=== PATIENT | male | born 1950 | race Caucasian/White ===

== ENCOUNTER 2018-01-02 12:55 | Inpatient (IN) | payer OTHER ==
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
[2018-01-02] MEDS ORDERED: NS 1,000 ML IV ONE (13:01)
--- NOTE | 2018-01-02 13:17 | CPEKG ---
Heart Rate: 83 RR Interval: 723 P-R Interval: 168 QRSD Interval: 90 QT Interval: 412 QTC Interval: 485 P [place]: 72 QRS [place]: 6 T Wave [place]: 48 EKG Severity - BORDERLINE ECG - EKG Impression: SINUS RHYTHM EKG Impression: ATRIAL PREMATURE COMPLEX EKG Impression: BORDERLINE PROLONGED QT INTERVAL Electronically Signed By: Pravin Gasca 02-Jan-2018 18:09:34
[2018-01-02] MEDS ORDERED: TDAP ADULT 0.5 ML INJ (BOOSTRIX) IM ONE (13:21)
[2018-01-02] MEDS ORDERED: LET GEL TOPICAL 1 EA SYR TP ONE (13:22)
[2018-01-02 13:29] LABS: PLATELET COUNT 206 10^3/uL (150-400)
[2018-01-02] MEDS ORDERED: IOPAMIDOL (ISOVUE-300) 100 ML BTL ONE (13:58)
[2018-01-02 14:26] LABS: INR 1.05 (0.83-1.16); PROTIME(PATIENT) 13.9 SEC (12.0-15.0)
[2018-01-02] MEDS ORDERED: HYDROmorphONE/DILAUDID 2 MG/ML INJ IVP ONE (14:32)
[2018-01-02] MEDS ORDERED: KETOROLAC 30 MG/1 ML SDV IVP ONE ×2 (15:51→16:13)
[2018-01-02] MEDS ORDERED: ACETAMINOPHEN 500 MG TAB PO ONE ×2 (15:54→16:13)
[2018-01-02] MEDS ORDERED: CYCLOBENZAPRINE 10 MG TAB PO ONE (16:15)
[2018-01-02] MEDS ORDERED: LIDOCAINE 4%/MENTHOL 1% PATCH TD ONE (16:15)
[2018-01-02] MEDS ORDERED: ONDANSETRON 4 MG/2 ML VIAL IVP PRN (17:33)
[2018-01-02] MEDS ORDERED: TAMSULOSIN HCL 0.4 MG CAP PO PRN (17:39)
[2018-01-02] MEDS ORDERED: FAMOTIDINE 20 MG TAB PO PRN (17:39)
[2018-01-02] MEDS ORDERED: HYDROmorphONE/DILAUDID 6 MG/30 ML PCA IV PRN (17:43)
[2018-01-02] MEDS ORDERED: NALOXONE HCL 0.4 MG/ML INJ IVP PRN (17:43)
[2018-01-02] MEDS ORDERED: HYDROmorphONE/DILAUDID 1 MG/ML INJ IVP ONE ×2 (17:43→20:15)
[2018-01-02] MEDS ORDERED: KETOROLAC 30 MG/1 ML SDV IVP SCH (18:00)
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
[2018-01-02] MEDS ORDERED: PATCH REMOVAL 1 EA PATCH TD SCH ×2 (21:00)
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
[2018-01-02] MEDS: ACETAMINOPHEN 500 MG TAB PO SCH (21:33)
[2018-01-02] MEDS: CYCLOBENZAPRINE 10 MG TAB PO SCH (21:33)
[2018-01-02] MEDS: KETOROLAC 30 MG/1 ML SDV IVP SCH (21:34)
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
[2018-01-02] MEDS: LR 1,000 ML IV SCH (22:52)
[2018-01-03] MEDS: KETOROLAC 30 MG/1 ML SDV IVP SCH ×4 (05:14→22:44)
[2018-01-03] MEDS: ACETAMINOPHEN 500 MG TAB PO SCH ×2 (05:15→18:32)
[2018-01-03 05:36] LABS: PLATELET COUNT 177 10^3/uL (150-400)
[2018-01-03] MEDS ORDERED: LIDOCAINE 4%/MENTHOL 1% PATCH TD SCH (09:00)
[2018-01-03] MEDS ORDERED: CYCLOBENZAPRINE 10 MG TAB PO SCH (09:00)
[2018-01-03] MEDS: CYCLOBENZAPRINE 10 MG TAB PO SCH ×3 (09:29→20:19)
[2018-01-03] MEDS: SERTRALINE HCL 100 MG TAB PO SCH (09:30)
[2018-01-03] MEDS: LR 1,000 ML IV SCH (09:32)
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
[2018-01-03] MEDS ORDERED: ceFAZolin 2 GM/DEXTROSE 100 ML IV ONE (10:47)
[2018-01-03] MEDS ORDERED: LR 1,000 ML IV ONE (12:01)
--- NOTE | 2018-01-03 12:37 | PDANEPAE ---
ANE History of Present Illness patient presents for L clavicle ORIF and chest tube placement ANE Past Medical History - Pulmonary History Hx Oxygen in Use at Home: No Hx Sleep Apnea: No Sleep Apnea Screening Result - Last Documented: Negative - Endocrine History Hx Diabetes: No - Chronic Pain History Chronic Pain: Yes (back, left shoulder) ANE Review of Systems Review of Systems: ANE Patient History - Allergies Allergies/Adverse Reactions: No Known Allergies Allergy (Unverified 01/02/18 13:10) - Home Medications Home medications: home medication list seen and reviewed Home Medications: Calcium Carbonate [Tums 500MG (*)] 500 - 1,000 mg PO PRN PRN 01/02/18 [Last Taken Unknown] Cyclobenzaprine [Flexeril 10 MG (*)] 10 mg PO HS PRN 01/02/18 [Last Taken ] Diclofenac Sodium [Voltaren-XR] 100 mg PO DAILY 01/02/18 [Last Taken 01/02/18] Famotidine [Pepcid 20 MG (*)] 20 mg PO DAILY PRN 01/02/18 [Last Taken Unknown] Sertraline HCl [Zoloft 100mg (*)] 100 mg PO DAILY 01/02/18 [Last Taken 01/02/18] Tamsulosin HCl [Flomax 0.4 MG (*)] 0.4 mg PO DAILY PRN 01/02/18 [Last Taken 03/07] - NPO status NPO Status: no food or drink >8 hours NPO Since - Liquids (Date): 01/02/18 NPO Since - Liquids (Time): 23:55 NPO Since - Solids (Date): 01/02/18 NPO Since - Solids (Time): 23:55 - Smoking Hx Smoking Status: Former smoker ANE Labs/Vital Signs - Labs Result Diagrams: 01/03/18 04:54 01/03/18 04:54 - Vital Signs Blood Pressure: 113/72 Heart Rate: 68 Respiratory Rate: 92 O2 Sat (%): 2 Height: 180.34 cm Weight: 89.811 kg ANE Physical Exam - Airway Neck exam: FROM Mallampati Score: Class 2 Mouth exam: normal dental/mouth exam - Pulmonary Pulmonary: no respiratory distress - Cardiovascular Cardiovascular: regular rate and rhythym - ASA Status ASA Status: II ANE Anesthesia Plan Anesthesia Plan: general endotracheal anesthesia (RBA discussed)
[2018-01-03] MEDS ORDERED: BUPIVACAINE/EPI 0.5% 30 ML SDV ONE (12:40)
[2018-01-03] MEDS ORDERED: LIDOCAINE 1% 300 MG/30 ML SDV ONE (12:42)
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
[2018-01-03] MEDS ORDERED: LIDOCAINE 2% 5 ML SDV ONE (12:55)
[2018-01-03] MEDS ORDERED: PROPOFOL 200 MG/20 ML VIAL ONE (12:55)
[2018-01-03] MEDS ORDERED: SUCCINYLCHOLINE CHLORIDE 200 MG/10 ML SYR IVP ONE (12:55)
[2018-01-03] MEDS ORDERED: fentaNYL 100 MCG/2 ML INJ ONE ×3 (12:55→16:09)
[2018-01-03] MEDS ORDERED: PHENYLEPHRINE HCL 100 MCG/ML SYR ONE (13:24)
[2018-01-03] MEDS ORDERED: DEXAMETHASONE 4 MG/ML VIAL ONE (13:28)
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
[2018-01-03] MEDS ORDERED: THROMBIN (BOVINE) 5,000 UNIT VIAL TP ONE (14:59)
[2018-01-03] MEDS ORDERED: HYDROCODONE/APAP 5/325 TAB PO PRN (15:06)
[2018-01-03] MEDS ORDERED: LR 500 ML IV PRN (15:06)
[2018-01-03] MEDS ORDERED: NALOXONE HCL 0.4 MG/ML INJ IVP PRN (15:06)
[2018-01-03] MEDS ORDERED: ONDANSETRON 4 MG/2 ML VIAL IVP PRN (15:06)
[2018-01-03] MEDS ORDERED: NEOSTIGMINE METHYLSULFATE 5 MG/5 ML SYR ONE (15:12)
--- NOTE | 2018-01-03 15:31 | POSTOPPROG ---
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
--- NOTE | 2018-01-03 15:36 | POSTANESTH ---
Post Anesthetic Evaluation Cardiovascular Status: Similar to Pre-Op Cond, Other, See Comment Respiratory Status: Similar to Pre-op Cond. Level of Consciousness/Mental Status: Mildly Sleepy, Arousable Pain Control: Adequate, Prn Tx Ordered Nausea/Vomiting Control: Adequate, Prn Tx Ordered Complications Possibly Related to Anesthesia: None Noted
--- NOTE | 2018-01-03 15:55 | CPEKG ---
Heart Rate: 73 RR Interval: 822 P-R Interval: 168 QRSD Interval: 82 QT Interval: 428 QTC Interval: 472 P [place]: 57 QRS [place]: 11 T Wave [place]: 49 EKG Severity - ABNORMAL ECG - EKG Impression: SINUS RHYTHM EKG Impression: MULTIPLE ATRIAL PREMATURE COMPLEXES Electronically Signed By: Stephan Man 04-Jan-2018 12:02:01
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
[2018-01-03] MEDS: fentaNYL 100 MCG/2 ML INJ IVP PRN ×2 (16:11→17:54)
[2018-01-03] MEDS ORDERED: LIDOCAINE 4%/MENTHOL 1% PATCH TD ONE (16:15)
[2018-01-03] MEDS ORDERED: HYDROCODONE/APAP 5/325 TAB ONE (17:16)
--- NOTE | 2018-01-03 18:50 | POSTOPPROG ---
Post Op Note Date of Operation: 01/03/18 Surgeon: Saroj Garrison Anesthesiologist: DOE Anesthesia: GET(General Endotracheal) Pre-op Diagnosis: MULTIPLE LEFT RIB FRACTURES AND PNEUMOTHORAX Post-op Diagnosis: SAME Indication: ENDOTRACHEAL INTUBATION Procedure: LEFT TUBE THORACOSTOMY Findings: FULL EXPANSION THE LEFT LUNG NO HEMOTHORAX Inf/Abcess present in the surg proc area at time of surgery?: No Depth: Organ Space EBL: Minimal Complications: NONE Drains: Constavac
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
[2018-01-03] MEDS: OXYCODONE/APAP 5/325 TAB PO PRN ×2 (20:19→20:58)
[2018-01-03] MEDS: HYDROmorphONE/DILAUDID 1 MG/ML INJ IVP PRN ×2 (20:59→23:18)
[2018-01-04] MEDS: OXYCODONE/APAP 5/325 TAB PO PRN ×2 (03:43→11:14)
[2018-01-04] MEDS: KETOROLAC 30 MG/1 ML SDV IVP SCH ×2 (03:45→10:35)
[2018-01-04 04:21] LABS: PLATELET COUNT 170 10^3/uL (150-400)
[2018-01-04] MEDS: HYDROmorphONE/DILAUDID 1 MG/ML INJ IVP PRN ×5 (08:19→21:58)
[2018-01-04] MEDS: CYCLOBENZAPRINE 10 MG TAB PO SCH ×3 (08:20→21:59)
[2018-01-04] MEDS: SERTRALINE HCL 100 MG TAB PO SCH (08:20)
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
[2018-01-04] MEDS ORDERED: ACETAMINOPHEN 500 MG TAB PO PRN (15:38)
[2018-01-04] MEDS ORDERED: LACTULOSE 20 GM/30 ML UDCUP PO PRN (15:51)
[2018-01-04] MEDS ORDERED: POLYETHYLENE GLYCOL 3350 17 GM PKT PO PRN (15:51)
[2018-01-04] MEDS ORDERED: BISACODYL 10 MG SUPP PR PRN (15:51)
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
[2018-01-04] MEDS: LIDOCAINE 4%/MENTHOL 1% PATCH TD SCH (15:57)
[2018-01-04] MEDS: IBUPROFEN 200 MG TAB PO PRN (15:58)
[2018-01-04] MEDS: oxyCODONE IR 15 MG TAB PO PRN ×2 (15:58→21:59)
[2018-01-04] MEDS: ENOXAPARIN 40 MG/0.4 ML SYR SC SCH (16:03)
[2018-01-04] MEDS: SENNOSIDES/DOCUSATE SODIUM TAB PO SCH (21:59)
[2018-01-05] MEDS: PATCH REMOVAL 1 EA PATCH TD SCH (00:52)
[2018-01-05] MEDS: HYDROmorphONE/DILAUDID 1 MG/ML INJ IVP PRN ×3 (04:05→20:21)
[2018-01-05] MEDS: oxyCODONE IR 15 MG TAB PO PRN ×5 (04:07→20:21)
[2018-01-05] MEDS: LIDOCAINE 4%/MENTHOL 1% PATCH TD SCH (08:06)
[2018-01-05] MEDS: ENOXAPARIN 40 MG/0.4 ML SYR SC SCH (08:07)
[2018-01-05] MEDS: SENNOSIDES/DOCUSATE SODIUM TAB PO SCH ×2 (08:08→20:20)
[2018-01-05] MEDS: CYCLOBENZAPRINE 10 MG TAB PO SCH ×3 (08:08→20:21)
[2018-01-05] MEDS: SERTRALINE HCL 100 MG TAB PO SCH (08:08)
[2018-01-05] MEDS: IBUPROFEN 200 MG TAB PO PRN (09:14)
--- NOTE | 2018-01-05 09:42 | ASMTCMCOM ---
CM Note CM Note Notes: Therapies have cleared pt to d/c home with family support. No other needs identified at this time. CM available for changes. Plan: Independent Date Signed: 01/05/2018 09:41 AM Electronically Signed By:HODAN Carbone
--- NOTE | 2018-01-05 13:06 | CPEKG ---
Heart Rate: 122 RR Interval: 492 QRSD Interval: 84 QT Interval: 324 QTC Interval: 462 QRS [place]: 22 T Wave [place]: 40 EKG Severity - ABNORMAL ECG - EKG Impression: ATRIAL FIBRILLATION, V-RATE 74-161 Electronically Signed By: Stephan Man 05-Jan-2018 19:38:11
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
--- NOTE | 2018-01-05 13:42 | ASMTCMCOM ---
CM Note CM Note Notes: CM met w/ pts daughter per her request. Daughter is concerned about pts rapid heart rate. CM spoke to JEZ Alfred and she reports that pt just went into afib. Pts daughter would like pt to have HC services. Pt and daughter does not have a preference on HC agencies as long as it is covered by their insurance. Referral made to [facility]. [facility] is able to accept. CM to follow. Plan: [facility]; PT, OT Date Signed: 01/05/2018 01:42 PM Electronically Signed By:HODAN Carbone
[2018-01-05] MEDS ORDERED: DILTIAZEM 25 MG/5 ML VIAL IVP ONE (15:45)
[2018-01-05] MEDS ORDERED: DILTIAZEM 125 MG in D5W 125 ML IV SCH (15:45)
[2018-01-05] MEDS ORDERED: DILTIAZEM HCL/D5W 125 ML IV SCH (16:30)
[2018-01-05 16:51] LABS: PLATELET COUNT 199 10^3/uL (150-400)
[2018-01-05] MEDS: NS 1,000 ML IV SCH (20:10)
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
[2018-01-05] MEDS: ENOXAPARIN 80 MG/0.8 ML SYR SC SCH (20:20)
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
[2018-01-06] MEDS: PATCH REMOVAL 1 EA PATCH TD SCH ×2 (02:11→23:44)
[2018-01-06] MEDS: oxyCODONE IR 15 MG TAB PO PRN ×5 (02:13→20:23)
[2018-01-06] MEDS: NS 1,000 ML IV SCH ×2 (05:33→12:28)
[2018-01-06] MEDS: CYCLOBENZAPRINE 10 MG TAB PO SCH ×3 (08:11→23:39)
[2018-01-06] MEDS: HYDROmorphONE/DILAUDID 1 MG/ML INJ IVP PRN ×2 (08:11→12:25)
[2018-01-06] MEDS: SERTRALINE HCL 100 MG TAB PO SCH (09:59)
[2018-01-06] MEDS: SENNOSIDES/DOCUSATE SODIUM TAB PO SCH ×2 (09:59→23:47)
[2018-01-06] MEDS: LIDOCAINE 4%/MENTHOL 1% PATCH TD SCH (09:59)
[2018-01-06] MEDS: ENOXAPARIN 80 MG/0.8 ML SYR SC SCH ×2 (10:00→23:39)
[2018-01-06] MEDS: MAGNESIUM HYDROXIDE 30 ML UDCUP PO PRN (10:50)
--- NOTE | 2018-01-06 11:01 | ECHO ---
[email or web address] [address] Main: [phone] Fax: Transthoracic Echocardiogram Name: ANDRE ONEAL MR#: [id number] Study Date: 01/06/2018 Study Time: 10:13 AM Date of : 1950 Age: 67 year(s) Height: 180.3 cm (71 in.) Weight: 89.81 kg (198 lb.) BSA: 2.1 m2 Gender: Male Examination: Limited Echo Indication: Trauma, Atrial Fibrillation, now normal NSR Image Quality: Contrast: Requested by: Adrian Chappell BP: 87 mmHg/59 mmHg Heart Rate: Rhythm: Indication: Trauma, Atrial Fibrillation, now normal NSR Procedure Staff Kiln Firer Helper: Barber Renteria VIELKA Reading Physician: Aaron Brandon MD Requesting Provider: Conclusions: Normal size left ventricle. Normal global systolic LV function. EF is 74 %. This is a limited echo to evaluate LV function and for a pericardial effusion. There is normal LV function and there is no evidence of a pericardial effusion. . Measurements: Chambers Valvular Assessment AV/MV Valvular Assessment TV/PV Normal Normal Normal Name Value Range Name Value Range Name Value Range IVSd (2D): 1.0 cm (0.6 cm-1.1 cm) LVDd (2D): 4.7 cm (4.2 cm-5.9 cm) LVDs (2D): 2.6 cm (2.1 cm-4 cm) LVPWd (2D): 1.0 cm (0.6 cm-1 cm) LVEF (2D): 74 (>=54 %) Continued Measurements: Findings: Left Ventricle: Normal size left ventricle. No LV hypertrophy. Normal global systolic LV function. EF is 74 %. No regional wall motion abnormality. Pericardium: No pericardial effusion. Exam Comments: Patient: ANDRE ONEAL Study Date: 01/06/2018 Page 1 of 2 10:13 AM This is a limited echo to evaluate LV function and for a pericardial effusion. There is normal LV function and there is no evidence of a pericardial effusion. . (No Signature Object) Patient: ANDRE ONEAL Study Date: 01/06/2018 Page 2 of 2 10:13 AM [id number]
[2018-01-06] MEDS: DILTIAZEM 30 MG TAB PO SCH ×3 (12:26→23:50)
[2018-01-06] MEDS ORDERED: ALBUTEROL 3 ML DEYVIAL IH PRN (12:55)
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
--- NOTE | 2018-01-06 14:19 | ASMTCMCOM ---
CM Note CM Note Notes: 01/06/2018 Case Management Note Discussed pt during rounds this morning. RN expressed concern discharging pt home. Met w/pt and daughter. Daughter Bere [phone] lives in [facility] at [address] ft and is unable to stay with pt. Pt expresses concerns about being able to get in and out of bed or chairs alone due to pain. At pt request faxed referral to [facility]. [facility] to evaluate onsite. Case Management d/c poc: [facility] pending acceptance vs. [facility] home health. Case Management to follow. Date Signed: 01/06/2018 02:18 PM Electronically Signed By:Eboni Rebolledo RN
[2018-01-06] MEDS: IPRATROPIUM/ALBUTEROL 3 ML DEYVIAL IH SCH ×3 (16:00→23:23)
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
[2018-01-06] MEDS: IBUPROFEN 200 MG TAB PO PRN (23:39)
[2018-01-07] MEDS: oxyCODONE IR 15 MG TAB PO PRN ×3 (01:12→14:10)
[2018-01-07] MEDS: IPRATROPIUM/ALBUTEROL 3 ML DEYVIAL IH SCH ×4 (05:59→21:57)
[2018-01-07] MEDS: DILTIAZEM 30 MG TAB PO SCH (06:19)
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
[2018-01-07] MEDS: LIDOCAINE 4%/MENTHOL 1% PATCH TD SCH (09:10)
[2018-01-07] MEDS: SENNOSIDES/DOCUSATE SODIUM TAB PO SCH ×2 (09:10→21:19)
[2018-01-07] MEDS: CYCLOBENZAPRINE 10 MG TAB PO SCH ×3 (09:11→21:20)
[2018-01-07] MEDS: SERTRALINE HCL 100 MG TAB PO SCH (09:11)
[2018-01-07] MEDS: ASPIRIN EC 81 MG TAB PO SCH (09:14)
[2018-01-07] MEDS ORDERED: NS 1,000 ML IV ONE (13:34)
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
[2018-01-07] MEDS: IBUPROFEN 200 MG TAB PO PRN (21:20)
[2018-01-08] MEDS: PATCH REMOVAL 1 EA PATCH TD SCH ×2 (00:27→22:17)
[2018-01-08] MEDS: oxyCODONE IR 15 MG TAB PO PRN ×2 (05:17→14:02)
[2018-01-08] MEDS: IPRATROPIUM/ALBUTEROL 3 ML DEYVIAL IH SCH ×3 (06:02→17:21)
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
[2018-01-08] MEDS: LIDOCAINE 4%/MENTHOL 1% PATCH TD SCH (09:11)
[2018-01-08] MEDS: CYCLOBENZAPRINE 10 MG TAB PO SCH ×3 (09:11→22:17)
[2018-01-08] MEDS: METOPROLOL TARTRATE 25 MG TAB PO SCH ×2 (09:12→22:14)
[2018-01-08] MEDS: SENNOSIDES/DOCUSATE SODIUM TAB PO SCH ×2 (09:14→22:15)
[2018-01-08] MEDS: ASPIRIN EC 81 MG TAB PO SCH (10:53)
[2018-01-08] MEDS: SERTRALINE HCL 100 MG TAB PO SCH (10:53)
[2018-01-08] MEDS: ENOXAPARIN 40 MG/0.4 ML SYR SC SCH (10:54)
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
[2018-01-08] MEDS: IBUPROFEN 200 MG TAB PO PRN (22:15)
[2018-01-09] MEDS: IPRATROPIUM/ALBUTEROL 3 ML DEYVIAL IH SCH ×5 (00:20→21:49)
[2018-01-09] MEDS: oxyCODONE IR 15 MG TAB PO PRN ×3 (02:17→18:22)
[2018-01-09] MEDS: LIDOCAINE 4%/MENTHOL 1% PATCH TD SCH (09:53)
[2018-01-09] MEDS: METOPROLOL TARTRATE 25 MG TAB PO SCH ×2 (09:53→22:07)
[2018-01-09] MEDS: SENNOSIDES/DOCUSATE SODIUM TAB PO SCH ×2 (09:54→22:08)
[2018-01-09] MEDS: SERTRALINE HCL 100 MG TAB PO SCH (09:55)
[2018-01-09] MEDS: CYCLOBENZAPRINE 10 MG TAB PO SCH ×3 (09:55→22:08)
[2018-01-09] MEDS: ENOXAPARIN 40 MG/0.4 ML SYR SC SCH (09:55)
[2018-01-09] MEDS: ASPIRIN EC 81 MG TAB PO SCH (09:55)
--- NOTE | 2018-01-09 15:46 | ASMTCMCOM ---
CM Note CM Note Notes: 01/09/2018 Case Management Note Faxed updated PT notes to [facility]. Requested authorization. Case Management d/c poc: [facility] pending authorization and acceptance. Case Management to follow. Date Signed: 01/09/2018 03:46 PM Electronically Signed By:Eboni Rebolledo RN
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
[2018-01-09] MEDS: MAGNESIUM HYDROXIDE 30 ML UDCUP PO PRN (18:23)
--- NOTE | 2018-01-09 18:39 | GOP ---
[f rep st] OPERATIVE REPORT DATE OF OPERATION: 01/03/2018 SURGEON: Saroj Garrison MD PREOPERATIVE DIAGNOSIS: Multiple left rib fractures and pneumothorax. POSTOPERATIVE DIAGNOSIS: Multiple left rib fractures and pneumothorax. PROCEDURE PERFORMED: Left tube thoracostomy. FINDINGS: The patient was found to have full expansion of the left lung with no evidence of a hemothorax. ESTIMATED BLOOD LOSS: Negligible. DESCRIPTION OF PROCEDURE: Patient was in the operating room under general endotracheal anesthesia by Dr. Villavicencio, prepped and draped in usual sterile fashion. A short incision was made in the 6th intercostal space in the anterior axillary line. Dissection extended through the subcutaneous tissue, up over the rib, and the pleura was then entered by dividing the intercostal muscles. A 28-Croatian chest tube was then introduced without difficulty and positioned in the apex of the chest and was secured to the exit site with 2-0 silk suture and connected to a Pleur-Evac drainage system. Wound was dressed. He tolerated the procedure quite well. Followup chest x-ray is pending. COMPLICATIONS: None. /[id number]/MODL MTDD
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
[2018-01-09] MEDS: PATCH REMOVAL 1 EA PATCH TD SCH (22:08)
[2018-01-10] MEDS: oxyCODONE IR 15 MG TAB PO PRN ×4 (01:37→16:16)
[2018-01-10] MEDS: IPRATROPIUM/ALBUTEROL 3 ML DEYVIAL IH SCH ×2 (06:24→11:11)
[2018-01-10] MEDS: LIDOCAINE 4%/MENTHOL 1% PATCH TD SCH (08:52)
[2018-01-10] MEDS: SENNOSIDES/DOCUSATE SODIUM TAB PO SCH (08:55)
[2018-01-10] MEDS: ASPIRIN EC 81 MG TAB PO SCH (08:55)
[2018-01-10] MEDS: SERTRALINE HCL 100 MG TAB PO SCH (08:56)
[2018-01-10] MEDS: CYCLOBENZAPRINE 10 MG TAB PO SCH ×2 (08:56→16:17)
[2018-01-10] MEDS: METOPROLOL TARTRATE 25 MG TAB PO SCH (08:56)
[2018-01-10] MEDS: ENOXAPARIN 40 MG/0.4 ML SYR SC SCH (08:57)
[2018-01-10] MEDS: MAGNESIUM HYDROXIDE 30 ML UDCUP PO PRN (09:04)
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
[2018-01-10 13:39] VITALS: BP 95/56
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
--- NOTE | 2018-01-10 15:50 | ASMTLACE ---
LACE Length of stay for Answers: 7-13 days current admission Acuity / Level of Answers: Yes Care: Did the patient have an inpatient admission? Comorbidities - select Answers: Other Notes: hx Hep C all that apply # of Emergency department Answers: 1-2 visits in the last 6 months Score: 10 Date Signed: 01/10/2018 03:49 PM Electronically Signed By:Eboni Rebolledo RN
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
--- NOTE | 2018-01-10 16:30 | ASMTDCNOTE ---
Case Management Discharge Discharge Order Complete? Answers: Yes Patient to Obtain Answers: Other Notes: [facility] Medications Transportation Arranged Answers: Other Notes: arranged by [facility] w/c with O2 Transport will Pick (Date 01/10/2018 05:00 PM & Time) Faxed Final Orders Answers: Yes Agency/Facility Transfer Answers: Yes Report Printed & Faxed to Receiving Agency Discharge Comments Notes: 01/10/2018 Case Management Note Met w/pt and confirmed decision to d/c to [facility]. Auth received from [facility]. Faxed d/c orders. Called [facility] for transport. [place] arranged transport for 17:00 cloth picker with wheelchair and O2. RN to call report. Date Signed: 01/10/2018 04:29 PM Electronically Signed By:Eboni Rebolledo RN
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
--- NOTE | 2018-02-22 10:48 | GOP ---
DATE OF OPERATION: 01/03/2018 SURGEON: Saroj Garrison MD PREOPERATIVE DIAGNOSIS: Multiple left rib fractures with a pneumothorax. POSTOPERATIVE DIAGNOSIS: Multiple left rib fractures with a pneumothorax. PROCEDURE PERFORMED: Left tube thoracostomy with intravenous sedation. FINDINGS: The patient was found to have full expansion of the left lung with no significant hemothor ax. DESCRIPTION OF PROCEDURE: Patient received IV sedation with Versed and fentanyl. He was placed in a supine position, prepped and draped in the usual sterile fashion. A short incision was made in the 6th intercostal space in the midaxillary line. Dissection extended up over the ribs. All this was d one with 1% Xylocaine local infiltration. Blunt entry into the 6th intercostal space was made with r elease of air. A 28-Mongolian chest tube was introduced and secured to the skin with 2-0 silk suture, a nd connected to a Pleur-Evac drainage system. He tolerated the procedure well. There were no compli cations. Wound was dressed. /[id number]/MODL
== END 2018-01-10 16:47 | DRG 958 ==
LOC: EDUNIT# → F3N 18:40 → OBSVTOIN 01-03 09:41 → F2W 01-03 18:14
PROVIDERS: ADMIT Surgery; ATTEND Surgery
PROC: 0PSB04Z Reposition Left Clavicle with Internal Fixation Device, Open Approach (ICD-10-PCS; principal; 2018-01-03 13:00)
PROC: 0W9B00Z Drainage of Left Pleural Cavity with Drainage Device, Open Approach (ICD-10-PCS; 2018-01-03 13:00)
PROC: 30233N1 Transfusion of Nonautologous Red Blood Cells into Peripheral Vein, Percutaneous Approach (ICD-10-PCS; 2018-01-08)
DX: S42.002A Fracture of unspecified part of left clavicle, initial encounter for closed fracture (principal); S22.42XA Multiple fractures of ribs, left side, initial encounter for closed fracture; S27.0XXA Traumatic pneumothorax, initial encounter; S06.9X9A Unspecified intracranial injury with loss of consciousness of unspecified duration, initial encounter; S42.002P Fracture of unspecified part of left clavicle, subsequent encounter for fracture with malunion; V29.88XA Motorcycle rider (driver) (passenger) injured in other specified transport accidents, initial encounter; Y92.410 Unspecified street and highway as the place of occurrence of the external cause; I48.91 Unspecified atrial fibrillation; K59.00 Constipation, unspecified; N17.9 Acute kidney failure, unspecified; D64.9 Anemia, unspecified; K21.9 Gastro-esophageal reflux disease without esophagitis; N40.0 Benign prostatic hyperplasia without lower urinary tract symptoms; F10.21 Alcohol dependence, in remission; Z87.891 Personal history of nicotine dependence; Z87.81 Personal history of (healed) traumatic fracture; Z86.19 Personal history of other infectious and parasitic diseases
CPT/HCPCS: 82435-PO; 82565-PO; 82947-PO; 84132-PO; 84295-PO; 84520-PO; 85014-PO; 92523-GN; 96374; 97116-GP; 97162-GP; 97165-GO; 97530-GO; 97530-GP; 97535-GO; A4565; C1713; C1769; G0378; G0515-GN; G8978-GP-CK; G8979-GP-CI; G8987-GO-CJ; G8988-GO-CI; G9165-GN-CI; G9166-GN-CI; G9167-GN-CI; J0330; J0690; J1100; J1170; J1650; J1885; J2370; J2704; J2710; J3010; P9016; P9021; Q9967

== ENCOUNTER → 2018-04-01 | Outpatient (CLI) | payer OTHER | LOC: FIMAGING 13:01 | PROVIDERS: ATTEND Orthopaedic Surgery Hand Surgery | DX: M75.122 Complete rotator cuff tear or rupture of left shoulder, not specified as traumatic (principal); M75.82 Other shoulder lesions, left shoulder; M75.22 Bicipital tendinitis, left shoulder; M19.012 Primary osteoarthritis, left shoulder; M25.412 Effusion, left shoulder ==

== ENCOUNTER → 2018-04-11 | Outpatient (CLI) | payer OTHER ==
[~2018-04-11] MED LIST: LIDOCAINE 1% 300 MG/30 ML SDV ONE
== END ==
LOC: FIMAGING 12:29
PROVIDERS: ATTEND Orthopaedic Surgery Hand Surgery
PROC: 0M9 Bursae and Ligaments, Drainage (ICD-10-PCS; principal; 2018-04-11)
DX: M25.812 Other specified joint disorders, left shoulder (principal)

== ENCOUNTER 2018-04-13 08:48 | Observation (INO) | payer OTHER ==
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
[2018-04-13] MEDS ORDERED: LIDOCAINE 1% 300 MG/30 ML SDV ONE (08:49)
[2018-04-13] MEDS ORDERED: BUPIVACAINE 0.5% 30 ML SDV ONE (08:50)
[2018-04-13] MEDS ORDERED: LIDO/EPI 1% **for epidural** 30 ML SDV ONE (08:50)
[2018-04-13] MEDS ORDERED: EPINEPHrine 30 MG/30 ML MDV (0.1 MG/0.1 ML) ONE (08:50)
[2018-04-13] MEDS ORDERED: LR 1,000 ML IV ONE (09:11)
[2018-04-13] MEDS ORDERED: LIDOCAINE 1% 2 ML INJ ID PRN (09:11)
--- NOTE | 2018-04-13 09:11 | PDHPUP ---
History & Physical Update H&P update statement: This history and physical update is based on an assessment of the patient which was completed after admission or registration (within 24 hours), but prior to the surgery/procedure. H&P update: H&P reviewed & patient examined, no change in patient's condition since H&P completed
[2018-04-13] MEDS ORDERED: MIDAZOLAM 2 MG/2 ML VIAL IVP ONE (09:25)
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
[2018-04-13] MEDS ORDERED: ALBUTEROL 3 ML DEYVIAL IH PRN (09:26)
[2018-04-13] MEDS ORDERED: HYDROCODONE/APAP 5/325 TAB PO PRN (09:26)
[2018-04-13] MEDS ORDERED: NALOXONE HCL 0.4 MG/ML INJ IVP PRN (09:26)
[2018-04-13] MEDS ORDERED: oxyCODONE IR 5 MG TAB PO PRN (09:26)
[2018-04-13] MEDS ORDERED: ONDANSETRON 4 MG/2 ML VIAL IVP PRN ×2 (09:26→14:19)
[2018-04-13] MEDS ORDERED: ACETAMINOPHEN 500 MG TAB PO PRN (09:26)
[2018-04-13] MEDS ORDERED: MIDAZOLAM 2 MG/2 ML VIAL ONE (09:27)
[2018-04-13] MEDS ORDERED: METOCLOPRAMIDE 10 MG/2 ML VIAL ONE (09:36)
[2018-04-13] MEDS ORDERED: PROPOFOL 200 MG/20 ML VIAL ONE (09:36)
[2018-04-13] MEDS ORDERED: fentaNYL 100 MCG/2 ML INJ ONE ×4 (09:36→12:32)
[2018-04-13] MEDS ORDERED: KETOROLAC 30 MG/1 ML SDV ONE (09:36)
[2018-04-13] MEDS ORDERED: LIDOCAINE 2% 100 MG/5 ML SYR ONE (09:36)
[2018-04-13] MEDS ORDERED: DEXAMETHASONE 4 MG/ML VIAL ONE (09:36)
[2018-04-13] MEDS ORDERED: BACITRACIN 50,000 UNITS/10 ML SYR IRR ONE (09:51)
[2018-04-13] MEDS ORDERED: POLYMYXIN B SULFATE 500,000 UNIT/10 ML SYR IRR ONE (09:51)
[2018-04-13] MEDS ORDERED: CEFAZOLIN 2 GM/DEXTROSE/100 ML BAG IV ONE (11:04)
--- NOTE | 2018-04-13 11:44 | POSTANESTH ---
Post Anesthetic Evaluation Cardiovascular Status: Similar to Pre-Op Cond Respiratory Status: Similar to Pre-op Cond. Level of Consciousness/Mental Status: Mildly Sleepy, Arousable Pain Control: Adequate, Prn Tx Ordered Nausea/Vomiting Control: Adequate, Prn Tx Ordered Complications Possibly Related to Anesthesia: None Noted
[2018-04-13] MEDS ORDERED: ALTEPLASE 2 MG VIAL IVP PRN (11:45)
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
[2018-04-13] MEDS: fentaNYL 100 MCG/2 ML INJ IVP PRN ×4 (12:03→13:37)
[2018-04-13] MEDS ORDERED: HYDROmorphONE/DILAUDID 2 MG/ML INJ ONE (12:10)
[2018-04-13] MEDS: HYDROmorphONE/DILAUDID 2 MG/ML INJ IVP PRN ×3 (12:12→13:38)
[2018-04-13] MEDS ORDERED: HYDROmorphONE/DILAUDID 1 MG/ML INJ IVP PRN (12:36)
[2018-04-13] MEDS ORDERED: HYDROCODONE/APAP 5/325 TAB ONE (13:47)
[2018-04-13] MEDS ORDERED: ceFAZolin 2 GM/DEXTROSE 100 ML IV SCH (14:00)
[2018-04-13] MEDS ORDERED: ACETAMINOPHEN 325 MG TAB PO PRN (14:19)
[2018-04-13 15:32] LABS: PLATELET COUNT 220 10^3/uL (150-400)
--- NOTE | 2018-04-13 15:54 | PDIAF ---
- Diagnosis Diagnosis: Septic L shoulder and humeral OM Code Status: Full Code - Medication Management Discharge Medications: Medications to Continue on Transfer Calcium Carbonate [Tums 500MG (*)] 500 - 1,000 mg PO PRN PRN 01/02/18 [Last Taken Unknown] Sertraline HCl [Zoloft 100mg (*)] 100 mg PO DAILY 01/02/18 [Last Taken 01/02/18] Tamsulosin HCl [Flomax 0.4 MG (*)] 0.4 mg PO DAILY PRN 01/02/18 [Last Taken 03/07] Acetaminophen [Tylenol ES 500 mg (*)] 1,000 mg PO Q8HRS PRN tab 01/10/18 [Last Taken Unknown] Aspirin EC [Aspirin EC 81 mg (*)] 81 mg PO DAILY tab 01/10/18 [Last Taken Unknown] oxyCODONE IR [Oxycodone Ir (*)] 15 mg PO Q4HRS PRN tab 01/10/18 [Last Taken Unknown] Nursing Home Antibiotics: daptomycin 500mg IV daily Nursing Home Antibiotic Stop Date: 05/25/18 Discharge Medications: Refer to the Discharge Home Medication list for PRN reason. PICC Care - Routine: Yes - Orders Services needed: Home Care, Registered Nurse Home Care Face to Face: I certify that this patient was under my care and that I had the required [id number] encounter meeting the encounter requirements on the discharge day. My findings support the fact that the patient is homebound as defined in Home Care Face to Face Continued: CMS Chapter 7 Medicare Benefits Manual 30.1.1 , The condition of the patient is such that there exists a normal inability to leave home and consequently, leaving home would require a considerable and taxing effort. - Labs/Radiology CBC w/diff Date: 04/20/18 (weekly ) CMP Date: 04/20/18 (weekly ) CRP Date: 04/20/18 (weekly ) CPK Date: 04/20/18 (weekly ) Call or Fax Lab and Imaging Results to: Ana Rosa Farfan MD [facility] at fax [phone] - Follow Up Care Current Providers and Referrals: Carson Cao MD [Primary Care Provider] - Jorge Monge MD [Medical Doctor] - Ana Rosa Farfan MD [Medical Doctor] - follow up in 10 days
[2018-04-13] MEDS ORDERED: DAPTOmycin 500 MG in NS 100 ML IV SCH (16:00)
[2018-04-13 16:42] LABS: CREATINE KINASE 47 IU/L (0-224)
--- NOTE | 2018-04-13 16:44 | ASMTCMCOM ---
CM Note CM Note Notes: Pt admitted today for postop wound infection. ID ordered home infusion of Daptomycin daily. PICC line placed today. Referral sent to [facility] and Ale, who will get back with us on manjarrez. Pt aware [facility] also a possibility, but he prefers home infusion pending out of pocket manjarrez. Pt to discharge tomorrow. D/C Plan: Home with Ale and LENNY Date Signed: 04/13/2018 04:43 PM Electronically Signed By:Angie Encinas
[2018-04-13] MEDS: oxyCODONE IR 5 MG TAB PO PRN ×2 (17:15→21:28)
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
[2018-04-14] MEDS: oxyCODONE IR 5 MG TAB PO PRN ×3 (01:06→10:39)
--- NOTE | 2018-04-14 06:22 | GOP ---
PATIENT: ANDRE ONEAL DATE OF SERVICE: 04/13/18 PATIENT DATE OF : 1950 SURGEON: Jorge Monge M.D. FINISHING WIRE SAWYER: Shira Bryant PA-C Mrs. Kulkarni assistance was medically necessary for patient positioning and the retraction of vital structures. ANESTHESIA: General PRE-OPERATIVE DIAGNOSES: Left shoulder septic arthritis (ICD-10 code M00.9 left shoulder pyogenic arthritis) Left shoulder infection surrounding suture anchors (ICD-10 code T84.7xxA left shoulder infection around internal orthopedic device) Left shoulder recurrent full thickness rotator cuff tear (ICD-10 code M75.120 complete rotator cuff tear) Left shoulder retained clavicle instrumentation (ICD-10 code T84.7xxA left shoulder infection around internal orthopedic device) POST-OPERATIVE DIAGNOSES: Left shoulder septic arthritis (ICD-10 code M00.9 left shoulder pyogenic arthritis) Left shoulder infection surrounding suture anchors (ICD-10 code T84.7xxA left shoulder infection around internal orthopedic device) Left shoulder recurrent full thickness rotator cuff tear (ICD-10 code M75.120 complete rotator cuff tear) Left shoulder retained clavicle instrumentation (ICD-10 code T84.7xxA left shoulder infection around internal orthopedic device) OPERATIVE PROCEDURES: CPT code 24329 Left clavicle removal of instrumentation CPT code 20112 -- Left shoulder arthroscopic debridement, extensive CPT code 16868 Left shoulder incision and drainage of a deep abscess CPT code 78093 Left shoulder incision and drainage of infected bursa CPT code 91324 Left shoulder incision of bone cortex (greater tuberosity) CPT code 38025 Left greater tuberosity removal of deep implants CPT code 56283 Debridement of bone, first 20 square cm or less EBL: 12cc COMPLICATIONS: None IMPLANTS: None BRIEF CLINICAL NOTE: This is a very pleasant 68 year old male with a significant history for recently undergoing left clavicle open reduction and internal fixation and left shoulder arthroscopic rotator cuff repair. During his post-operative recovery from rotator cuff repair, the patient reports increased left shoulder pain after lifting some luggage. A repeat left shoulder MRI was performed with demonstrated a recurrent left shoulder rotator cuff tear. As such, he was scheduled to undergo left shoulder arthroscopy with rotator cuff repair on 04/11/18. Upon arriving in the pre-operative holding area on 04/11/18, the patient was found to have a 3cm by 3cm area of erythema surrounding his lateral portal incision. As a result, his surgery on 04/11/18 was cancelled and he underwent a left shoulder aspiration to obtain fluid for culture and gram stain. Cultures and gram stain demonstrated bacterial growth at approximately 18 hours. As such, I discussed the risks, benefits, alternatives, and complications associated with operative intervention ( specifically, left shoulder arthroscopy with irrigation and debridement, left shoulder open irrigation and debridement, left shoulder removal of deep implants , and left clavicle removal of deep implants). The patient fully understands the risks, benefits, alternatives, and complications associated with operative intervention. The patient has signed the informed consent form for surgery. OPERATIVE NOTE: On the day of surgery, all of the patients questions were answered. The patient was then transferred from the pre-operative area into the operating room and a formal, Time-Out procedure was performed. The patient was identified by name, medical record number, social security number, and date of . In addition, the patients left upper extremity was identified as the correct portion of the patients body for surgery with the patients left shoulder and left clavicle being identified as the correct portions of that extremity for surgery. The patient was then transferred to the operating room table and placed in the beach chair position while padding all bony prominences. The left upper extremity was then prepped and draped in the normal sterile fashion. A sterile marking pen was then utilized to girish out the patients pre-existing clavicle incision as well as his pre-existing posterior and anterior portal incisions. Lastly, a longitudinal incision was marked out laterally over the deltoid. Attention was first turned to the left clavicle. Left clavicle incision A number 10 blade was used to incise the skin. Meticulous hemostasis was obtained with bovie cautery. Crossing superficial sensory nerve branches were identified and protected. The delto-trapezial fascia was incised to expose the underlying instrumentation. The plate and all screws were removed from the clavicle. The underlying bone was sharply surgically debrided to remove all bony overgrowth. Ozzy-posterior C-arm images demonstrated complete removal of the implants. The entire wound was then copiously irrigated with sterile normal saline mixed with bacitracin and polymixin. The skin was then re- approximated with 3-0 nylon sutures. The clavicle incision was then dried and an Ioban dressing was applied. Attention was then turned to the left shoulder. Left shoulder arthroscopy An 18-gauge spinal needle was utilized to localize the glenohumeral joint and the joint was insufflated with 60cc of a 50:50 mixture of 1% lidocaine with 1: 200,000 components of epinephrine and normal saline. A number 11 blade was used to make the posterior portal incision. The blunt obturator and arthroscopic cannula were then advanced through the posterior portal incision into the glenohumeral joint. The arthroscope was inserted and the shoulder was brought into external rotation. An 18-gauge spinal needle was utilized to create the anterior portal with outside-in technique. A medium-sized Athrex corkscrew cannula was then inserted through the anterior portal incision. The entire intra-capsular joint space was then copiously irrigated with sterile normal saline and sharply surgically debrided with a 4.0mm cutter. The cartilage surfaces of the glenoid and the humeral head did not demonstrate any discrete evidence of damage from the infection. The arthroscope and all instruments and portals were then removed from the joint and attention was turned to the lateral deltoid incision. Latera deltoid incision A number 15 blade was used to incise the skin. Meticulous hemostasis was obtained throughout the subcutaneous plane. The deltoid muscle was split in line with its fibers to provide access to the subacromial space. Purulent material was found within the subacromial space. The purulent material was cultured. Intravenous antibiotics were administered after all cultures were obtained. All suture material was removed from the rotator cuff. Both anchor bodies were removed from the greater tuberosity. The supraspinatus demonstrated a recurrent tear at the site of previous repair. The entire wound was then sharply surgically debrided including the bone of the greater tuberosity. The wound was copiously irrigated with sterile normal saline mixed with bacitracin and polymixin. The lateral deltoid incision and the arthroscopic portal incisions were re- approximated with 3-0 nylon sutures. Betadine soaked gauze was applied to all incisions followed by an occlusive Ioban dressing. The left arm was placed into a sling. The patient was reversed from anesthesia and transferred from the operating room table onto the post-operative gurney and transferred from the operating room to the PACU in stable condition. POST-OPERATIVE PLAN: The patient will remain in the current dressing for the next 2 weeks. He may remove the sling and perform both active and passive range of motion of his left shoulder as tolerated. He will be admitted for overnight observation and the infectious disease team will be consulted for their recommendations on long- term intravenous antibiotics. /[id number]/MODL MTDD
--- NOTE | 2018-04-14 07:56 | PDIAF ---
- Diagnosis Diagnosis: Septic L shoulder and humeral OM Code Status: Full Code - Medication Management Discharge Medications: Medications to Continue on Transfer RX: Sertraline HCl [Zoloft 100mg (*)] 100 mg PO DAILY 01/02/18 [Last Taken 04/13] RX: Tamsulosin HCl [Flomax 0.4 MG (*)] 0.4 mg PO DAILY PRN 01/02/18 [Last Taken 12/26/17] Calcium Carb/Magnesium Hydrox [Rolaids Chewable Tablet] 1 each PO DAILY PRN [Last Taken Unknown] Sildenafil Citrate [Viagra 25 MG (*)] 25 mg PO DAILY PRN 04/13/18 [Last Taken Unknown] oxyCODONE IR [Oxycodone Ir (*)] 5 - 10 mg PO Q4 PRN 04/13/18 [Last Taken Unknown ] Fdc Antibiotics: ceftriaxone 2gm IV daily Fdc Antibiotic Stop Date: 05/25/18 Discharge Medications: Refer to the Discharge Home Medication list for PRN reason. PICC Care - Routine: Yes - Orders Services needed: Home Care, Registered Nurse Home Care Face to Face: I certify that this patient was under my care and that I had the required [id number] encounter meeting the encounter requirements on the discharge day. My findings support the fact that the patient is homebound as defined in Home Care Face to Face Continued: CMS Chapter 7 Medicare Benefits Manual 30.1.1 , The condition of the patient is such that there exists a normal inability to leave home and consequently, leaving home would require a considerable and taxing effort. - Labs/Radiology CBC w/diff Date: 04/20/18 (weekly ) CMP Date: 04/20/18 (weekly ) CRP Date: 04/20/18 (weekly ) Call or Fax Lab and Imaging Results to: Ana Rosa Farfan MD [facility] at fax [phone] - Follow Up Care Current Providers and Referrals: Carson Cao MD [Primary Care Provider] - Jorge Monge MD [Medical Doctor] - Ana Rosa Farfan MD [Medical Doctor] - follow up in 10 days
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
[2018-04-14] MEDS ORDERED: TAMSULOSIN HCL 0.4 MG CAP PO PRN (09:44)
[2018-04-14] MEDS ORDERED: CALCIUM CARB PO PRN (09:44)
[2018-04-14] MEDS ORDERED: MAGNESIUM HYDROX PO PRN (09:44)
[2018-04-14] MEDS ORDERED: SILDENAFIL CITRATE 25 MG PO PRN (09:44)
--- NOTE | 2018-04-14 09:50 | ASMTLACE ---
LACE Length of stay for Answers: 1 day current admission Acuity / Level of Answers: No Care: Did the patient have an inpatient admission? Comorbidities - select Answers: Opioid dependence all that apply / Chronic pain Other Notes: AFib # of Emergency department Answers: 1-2 visits in the last 6 months Score: 7 Date Signed: 04/14/2018 09:50 AM Electronically Signed By:HODAN Carbone
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
--- NOTE | 2018-04-14 09:57 | ASMTCMCOM ---
CM Note CM Note Notes: Pts case discussed w/ Dr. Farfan. Pt is being discharged today. He is planning on flying out to [facility] tomorrow to see his Mom that is in the hospital. Dr. Farfan wrote pt an excuse letter to fly w/ his ivabx supplies. Elina from [facility] will call pt directly to talk financial. DC orders sent to [facility]. [facility] will deliver meds tonight. [facility] will see pt tomorrow at 8AM. [facility] will see pt on to do the picc line changes. CM provided Shannan, RN w/ phone number to give report. CM available for changes. Plan: Ale w/ [facility] Date Signed: 04/14/2018 09:56 AM Electronically Signed By:HODAN Carbone
--- NOTE | 2018-04-14 10:40 | ASDISCHSUM ---
Discharge Information Plan Status:IV ABX/Infusion Medically Cleared to Leave:04/14/2018 Discharge Date:04/14/2018 CM D/C Disposition: ADT D/C Disposition: Projected Discharge Date:04/14/2018 11:00 AM Transportation at D/C: Discharge Delay Reason: Follow-Up Date:04/14/2018 11:00 AM Discharge Slot: Final Diagnosis: Placement Information Referral Type:Home Infusion Referral ID:[id number] Provider Name:[facility] Address [address] Address 2: City:[place] Selection Factors: State:[place] Referral Type:*Home Health Care Services Referral ID:[id number] Provider Name:[facility] Address [address] 2: City:[place] Selection Factors: State:[place] Patient Contact Information Contact Name:CLOTILDE Relationship:Daughter Address: Work Phone: City: [facility] Phone: [facility] Code: Email: Financial Information Financial Class:Medicare Advantage Plans Primary Plan Desc:[employer] Primary Plan Number:[id number] Secondary Plan Desc: Secondary Plan Number: Assessment Information LACE LACE Length of stay for Answers: 1 day current admission Acuity / Level of Answers: No Care: Did the patient have an inpatient admission? Comorbidities - select Answers: Opioid dependence all that apply / Chronic pain Other Notes: AFib # of Emergency department Answers: 1-2 visits in the last 6 months Score: 7 Date Signed: 04/14/2018 09:50 AM Electronically Signed By:HODAN Carbone [facility] CM Progress Note CM Note CM Note Notes: Pt admitted today for postop wound infection. ID ordered home infusion of Daptomycin daily. PICC line placed today. [facility] on manjarrez. Pt aware [facility] also a possibility, but he prefers home infusion pending out of pocket manjarrez. Pt to discharge tomorrow. D/C Plan: Home with Ale and [facility] Date Signed: 04/13/2018 04:43 PM Electronically Signed By:Angie Encinas [facility] Progress Note CM Note CM Note Notes: Pts case discussed w/ Dr. Farfan. Pt is being discharged today. He is planning on flying out to [facility] tomorrow to see his Mom that is in the hospital. Dr. Farfan wrote pt an excuse letter to fly w/ his ivabx supplies. Elina from [facility] will call pt directly to talk financial. DC orders sent to [facility]. [facility] will deliver meds tonight. [facility] will see pt tomorrow at 8AM. [facility] will see pt on to do the picc line changes. CM provided Shannan, JEZ w/ phone number to give report. CM available for changes. Plan: Ale schilling/ LENNY; JEZ Date Signed: 04/14/2018 09:56 AM Electronically Signed By:HODAN Carbone Intervention Information
[2018-04-14 11:26] VITALS: BP 121/67
[2018-04-15] MEDS ORDERED: SERTRALINE HCL 100 MG TAB PO SCH (09:00)
== END 2018-04-14 12:08 | disposition home or self-care (01) ==
LOC: FSGY 08:48 → F3E 12:32 → F3N 14:48
PROVIDERS: ADMIT Orthopaedic Surgery Hand Surgery; ATTEND Orthopaedic Surgery Hand Surgery
PROC: 02HV33Z Insertion of Infusion Device into Superior Vena Cava, Percutaneous Approach (ICD-10-PCS; 2018-04-13)
PROC: 0PP Upper Bones, Removal (ICD-10-PCS; principal; 2018-04-13 10:00)
PROC: 0MB24ZZ Excision of Left Shoulder Bursa and Ligament, Percutaneous Endoscopic Approach (ICD-10-PCS; principal; 2018-04-13 10:00)
DX: T84.7XXA Infection and inflammatory reaction due to other internal orthopedic prosthetic devices, implants and grafts, initial encounter (principal); M00.812 Arthritis due to other bacteria, left shoulder; M86.122 Other acute osteomyelitis, left humerus
CPT/HCPCS: 20680; 23035; 29823; 36558; 76001; 77001; 90686; C1713; C1751; G0008; G0378; J0171; J0690; J0696; J0878; J1100; J1170; J1885; J2001; J2250; J2704; J2765; J3010